=== PATIENT | female | born 2000 | race Caucasian/White ===

== ENCOUNTER 2021-09-03 09:15 | Outpatient (RCR) | payer OTHER, SELFPAY ==
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
--- NOTE | 2021-09-03 10:14 | BH.COMM_ITS ---
Communication Note - Communication with Client Communication Note: Met with patient to complete initial paperwork. No sig nificant change since pre-admission screening. Completed [place] Suicide screening. Pt reports last suicidal ideation with plan or intent occurred on 08/04/21 just prior to her attempt and hospitalization. Reports long-standing self-injurious behaviors and suicidal thoughts which in the last month have only lasted minutes. Denied active SI, plan, or intent this AM. Admits to passive thoughts of which are daily for several months. Reviewed case with Dr. Hall with plan to admit to IOP with dx of MDD, recurrent, severe, w/o psych features F33.2
--- NOTE | 2021-09-03 10:25 | BH.SGPN.GN ---
Behaviors/Verbalizations/Mental Status: [] Eye contact is good. Motor activity is appropriate. Appearance is neat. Speech is Appropriate. Mood is anxious. Affect is congruent. Thoughts are linear and logical. No evidence of psychosis. Client Response/Progress/Benefit: [] Pt did not participate in interactive group discussion however was engaged during experiential activity. Attentive during psychoeducation on the role and types of supports. Group members were able to identify types of healthy support which included; family, friends, medications, pets, professionals, and healthy hobbies. Also able to identify the difference between healthy and unhealthy support. Listed that healthy support is; non-judgemental, understanding, challenges us, can keep us in check, motivates us, and gives us space when needed. Obstacles that were identified to keep one from seeking or utilizing support included; cognitive distortions, pride, lack of awareness, fear of other's reactions. During experiential activity pt was able to relate and make connections between psychoeducation and the activity. Benefited from increased insight into the benefits of having a balanced support system. Will continue in IOP to maintain safety, prevent decompensation, and increase healthy coping skills. Narrative Note: []
--- NOTE | 2021-09-03 11:16 | BH.SGPN.GN ---
Behaviors/Verbalizations/Mental Status: []Client alert and oriented, casually dressed and groomed. Eye contact fair to good. Motor activity appropriate. Speech within normal limits. Affect constricted, mood depressed. Thoughts linear, logical, no signs of hallucinations or delusions. Client Response/Progress/Benefit: []Client was attentive and taking notes throughout session, however, continues to remain mostly passive in participation. Participated in the group activity highlighting the various barriers to effectively utilizing supports and strategies for improving support. Client provided some limited input, which is progress, during discussion on the types of support our supports can provide (emotional, tangible, affirmational, network/belonging, and instructional) and the group listed examples for all types. Client reports wanting to work on increasing emotional supports, noting this will help her feel heard and have a safe person she can vent to. Client plans to improve this support area by making efforts to open up more to her friend, Barbara, about emotional needs. Client seemed to benefit from identifying the type of support and how this support will aid in promoting overall mental wellness. Will continue IOP tx to further improve healthy coping repertoire, continue to improve mood stability and reduce self-harming urges, maintain safety, as well as prevent decompensation. Narrative Note: []
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
--- NOTE | 2021-09-04 10:15 | BH.SGPN.GN ---
Behaviors/Verbalizations/Mental Status: []Client alert and oriented, disheveled appearance. Eye contact poor-head down and eyes closing at times. Motor activity appropriate. Speech within normal limits. Affect flat, mood depressed and irritable. Thoughts linear, logical, no signs of hallucinations or delusions. Client Response/Progress/Benefit: []Client did not appear engaged during session AEB being quiet, not taking notes, and almost falling asleep at times. Group identified benefits of setting boundaries such as advocating for oneself, less anxiety and stress, and better quality of life. Group also identified barriers to setting boundaries. Client seemed to benefit from meeting with psychiatry today and gaining peer connection. Second day of IOP tx, no progress to document. Will continue IOP tx prevent decompensation and maintain safety. Narrative Note: []
[2021-09-04 10:23] VITALS: BP 118/78; PULSE 81
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
--- NOTE | 2021-09-04 12:46 | BH.DR.ITP ---
Initial Treatment Plan Patient Information Visit Information: ADMISSION DATE: EXPECTED LOS: 4-6 weeks Problems/Symptoms Problem #1:: Depression Symptom:: Sadness, hopelessness, worthlessness, guilt, low motivation, biological disruption of appetite, passive thoughts of , recent fleeting suicidal ideation
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
--- NOTE | 2021-09-05 09:06 | BH.SGPN.GN ---
Behaviors/Verbalizations/Mental Status: []Eye contact is fair. Motor activity is appropriate. Appearance is casual. Speech is Appropriate. Mood is dysthymic. Affect is congruent. Thoughts are linear and logical. No evidence of psychosis. SI reported as a 1/5 which is consistent with baseline. Denies any plan, or intent as of this date. Client Response/Progress/Benefit: []Pt responded well to session AEB pt listening attentively to peers and willingness to process with group. Pt reports feeling ?tired? this morning. Attributes this to ongoing difficulties in managing symptoms of depression, noting that she had slept the entire previous day as well. Pt acknowledged that this has not been helpful for improving her mental health and did well to identify healthier alternatives to isolating. Expressed plans to meet up with her best friend and darius gabrielle together. Pt shared this activity brings her david and will also provide a change in environment which is a positive. Shared that she has also taken steps to establish a boundary with someone she met while hospitalized, explaining that this person had become negative and a toxic influence on her thoughts. Shared that she had muted the conversation so she would no longer receive notifications as well. Appears to be engaging in treatment and able to connect more with fellow participants which is progress. Benefited from supportive environment and reflecting upon personal areas of progress. Recommended continued IOP tx to promote healthy skill application, continue to improve mood stability, and prevent decompensation. Narrative Note: []
--- NOTE | 2021-09-05 10:15 | BH.SGPN.GN ---
Behaviors/Verbalizations/Mental Status: []Client alert and oriented, casually dressed and groomed. Eye contact fair. Motor activity appropriate. Speech within normal limits. Affect flat, mood depressed. Thoughts linear, logical, no signs of hallucinations or delusions. Client Response/Progress/Benefit: []Pt provided input in small group discussion, but was quiet during larger group discussion. Attentive during psychoeducation and provided insight on definition and benefits of self-care. Group identified self-care benefits to include; improves relationships, increases motivation, helps one be more engaged with others, improves physical health, and can improve productivity. Pt connected with the barriers that keep people from practicing self-care and reports feeling guilty is a big barrier for her. Pt participated in activity aimed at identifying and challenging common self-care myths. Worked within small group to identify evidence challenging myths. Benefited from group by increasing awareness of benefits to self-care and consequences of neglecting self-care. Will continue in IOP to prevent decompensation, improve symptom management, and maintain safety. Narrative Note: []
--- NOTE | 2021-09-05 11:15 | BH.SGPN.GN ---
Behaviors/Verbalizations/Mental Status: []Client alert and oriented, casually dressed and groomed. Eye contact good. Motor activity appropriate. Speech within normal limits. Affect flat, mood apathetic. Thoughts linear, logical, no signs of hallucinations or delusions. Client Response/Progress/Benefit: []Client engaged participant AEB client taking notes and participating in the activity. Attentive throughout group discussion on the various areas of self-care and made connections during the activity. Client completed worksheet which identified current self-care practices and what self-care activities client wants to start using. Client selected financial self-care as the area of self-care client would like to improve. Client plans to do this by creating a budget. Appeared to benefit from completing the self-care evaluation and gaining insights into current self-care practices, as well as identifying areas in which she would like to improve upon. Will continue IOP tx to maintain safety, increase emotional regulation skills, and improve daily functioning. Narrative Note: []
--- NOTE | 2021-09-09 10:10 | BH.SGPN.GN ---
Behaviors/Verbalizations/Mental Status: []Client alert and oriented, casually dressed and groomed. Eye contact poor. Motor activity appropriate. Speech within normal limits. Affect flat, mood depressed. Thoughts linear, logical, no signs of hallucinations or delusions. Client Response/Progress/Benefit: []Client was a passive participant AEB providing limited feedback to discussion and passively involved with group activity. Connected with the topic of pitfalls and helped the group discuss barriers that keep them from choosing a healthier path to mental wellness such as pitfalls. Group worked together to identify examples of personal pitfalls which included: lashing out, jumping to conclusions, social media, isolation and addictive behaviors. Client shared personal pitfalls as: poor communication, avoidance, and not setting boundaries. Completed activity with group, stayed quiet but listened to others ideas. Client benefited from group as learned personal barriers from improving mental health. Client will continue IOP to increase engagement in treatment, improve emotion regulation and prevent decompensation.
--- NOTE | 2021-09-09 11:10 | BH.SGPN.GN ---
Behaviors/Verbalizations/Mental Status: []Client alert and oriented, casually dressed and groomed. Eye contact fair. Motor activity appropriate. Speech within normal limits. Affect constricted, mood anxious. Thoughts linear, logical, no signs of hallucinations or delusions. Client Response/Progress/Benefit: []Client engaged throughout AEB client actively listening, taking notes, and at times contributing to discussion. Client completed worksheet identifying personal pitfalls impacting mental health progress. Client identified the following pitfalls: lack of communication, avoidance, and lack of boundaries. Group brainstormed different coping skills to help manage pitfalls. Client selected lack of boundaries as the pitfall client would like to overcome. Client plans to work on this by ?reminding myself to live for me, not what other people what of me.? from identifying personal pitfalls and strategies to overcome these pitfalls. Will continue IOP tx to improve emotional regulation skills, reduce suicidal ideations, and increase application of healthy coping skills. Narrative Note: []
--- NOTE | 2021-09-09 15:12 | BH.MDN ---
Multi-Disciplinary Note - Note 30-min Individual Time Started:: 09:40 Date: 09/09/21 Purpose of session/treatment goals addressed:: To address current stressors, symptoms, and triggers. Another goal was to identify coping skills and supports to help client make it through the holidays. Eye Contact:: Good Motor Activity:: Appropriate Appearance:: Casual Speech:: Appropriate Mood:: Anxious Affect:: Congruent Thoughts:: Linear, Logical, No evidence of hallucinations/delusions noted Staff Interventions:: motivational interviewing, CBT techniques, rapport building, taught coping skills - DBT skills overview. Client Response:: Client responded well to session, open to meeting with therapist. Client reports the weekend went pretty well as client spent a lot of time with friends. Client stated she is currently frustrated with her sister and mother, but client reports this is normal for client. Client's biggest stressor right now is being around her extended family on [place]. Client shared they are all going to ask how I'm doing and how school is and I'm not looking forward to it. Discussed supports and coping skills client can use to cope during the holidays. Client stated her mom plans to call family members ahead of time to set a boundary and client would like to take a friend as an extra support. Also rehearsed statements client can use if someone does not respect a boundary. Also reviewed DBT emotional regulation skills (halt unhealthy behaviors, create a plan, redirect, and self-soothe). Discussed ways client has been coping with self-harm urges and chronic SI including distracting self with TV shows. Client receptive to reviewing the DBT handout for homework. Risks/Concerns:: Client reports having chronic passive SI, but client denies any active suicidal ideations, plan, or intent as of 09/09/21. Future oriented and talking about looking forward to her birthday with friends. Client reports her birthday is coming up and she plans to drink with her friends. Client has a history of alcohol misuse and this concern was discussed. Progress Toward Goals/Plan:: Client progressing towards treatment AEB her consistent attendance and engagement in individual sessions. Client's second week of IOP tx, so no significant changes in mood to document. Client continues to endorse a depressed mood, chronic passive SI and urges to self-harm, negative thinking patterns, and anxiety. Client also reports ongoing interpersonal relationship issues with her family that continue to impact her mental health. Client will continue IOP tx to prevent decompensation, improve emotional regulation skills, and improve daily functioning. Time Stopped:: 10:00
--- NOTE | 2021-09-10 09:00 | BH.SGPN.GN ---
Behaviors/Verbalizations/Mental Status: [] Eye contact is good. Motor activity is appropriate. Appearance is casual. Speech is Appropriate. Mood is depressed. Affect is flat. Thoughts are linear and logical. No evidence of psychosis. Reviewed daily check-in tracker and pt reports 2/5 for suicidal ideations and 1/5 for intent. This has been baseline since entering the program. Client Response/Progress/Benefit: [] Pt participated when prompted. Attentive. Daily symptoms tracker notes 3/5 for depression. Pt states while smiling I'm pretty excited about his upcoming week. Shared that her b-day is next week, her brother's is this week, and Xmas is this Thursday. She is stressed about interacting with family due to her recent mental health struggles and asked peers for feedback on how to handle nosy people. Group provided some suggestions and feedback to set boundaries and respond politely to those who ask questions that are too invasive. Admits that she continues to struggle with intrusive suicidal thoughts and is hopeless at times that treatment and therapy will not be effective. Nothing has worked in the past and I don't want to think like this forever. She follows this up with stating that she will try and put effort into the IOP program. Group members empathized with her feelings and provided support and encouragement which was beneficial. Will continue in IOP to maintain safety, increase health coping, and improve functioning. Narrative Note: []
--- NOTE | 2021-09-10 10:15 | BH.SGPN.GN ---
Behaviors/Verbalizations/Mental Status: []Client alert and oriented, casually dressed and groomed. Eye contact fair to good. Motor activity appropriate. Speech within normal limits. Affect constricted, mood depressed. Thoughts linear, logical, no signs of hallucinations or delusions Client Response/Progress/Benefit: [] Client was attentive throughout and taking notes; however, remained passive throughout discussion portions of session. Appeared to connect with group topic of perspective and the impacts of one?s perspective on mental health. This is evidenced by nodding at times. Client attentive as the group worked to identify impact of a negative perspective which included: not believing treatment will work, giving up, negative self-talk, and unhealthy coping. Client appeared to benefit from increasing understanding of mental health benefits of a positive perspective as she often struggles with perspective when it comes to the treatment environment. Progress limited as client continues to struggle with active participation in discussion, however does appear engaged and continues to take notes throughout as well as is opening up more to fellow participants. Will continue IOP tx to continue to promote healthy coping skills, improve mood stability, and prevent decompensation. Narrative Note: []
--- NOTE | 2021-09-10 11:15 | BH.SGPN.GN ---
Behaviors/Verbalizations/Mental Status: []Client alert and oriented, causally dressed and groomed. Eye contact good. Motor activity appropriate. Speech within normal limits. Affect constricted, mood dysthymic. Thoughts linear, logical, no signs of hallucinations or delusions Client Response/Progress/Benefit: []Pt did well to remain attentive throughout session, AEB providing input throughout discussion. Engaged as group reviewed the importance of taking a strengths-based approach in order to foster a healthier perspective and better manage mental health symptoms. Completed strengths exploration worksheet and identified personal strengths to include: humor, persistence, social awareness, open-mindedness, and empathy. Pt reported she will build her strengths by reaching out to healthy supports for validation. Benefited from identifying personal strengths and strategies for enhancing use of identified strengths. Pt continues to report hopelessness that therapy will work, but she is showing progress in increased engagement in sessions. Pt to continue IOP tx to prevent decompensation, increase distress tolerance skills, and improve mood stability. Narrative Note: []
--- NOTE | 2021-09-11 09:00 | BH.SGPN.GN ---
Behaviors/Verbalizations/Mental Status: [] Eye contact is good. Motor activity is appropriate. Appearance is casual. Speech is Appropriate. Mood is depressed. Affect is flat. Thoughts are linear and logical. No evidence of psychosis. Reviewed daily check in sheet and pt reports 2/5 for suicidal thoughts and 1/5 for intent. This has been baseline since entering IOP. Client Response/Progress/Benefit: [] Pt participated when prompted. Attentive. Emotion for today is neutral stating that she is neither depressed or happy. Daily symptom tracker notes 3/5 for depression and 2/5 for irritability. Shared that she has stayed away from the drama with her roommates from [place]. She discussed the dynamics briefly and feels that its best for her mental health not to get involved in unhealthy group texts. She is upset due to her friend possibly not being able to visit for pt's b-day next week however is managing the distress stating If that happens I have a back-up plan. Continues to look forward to upcoming holiday and is having lunch with her mother today. In the past pt has mentioned conflict with her parents and when asked stated that he and her mother often get-along well. She reports that it depends on her mother's mood and took no responsibility for her previous mood or actions that could impact the relationship. Progress noted. Benefited from group support, encouragement, and feedback. Will continue in IOP to maintain safety and prevent decompensation. Narrative Note: []
--- NOTE | 2021-09-11 10:07 | BH.SGPN.GN ---
Behaviors/Verbalizations/Mental Status: []Eye contact is fair, at times appearing to struggle to remain awake. Motor activity is appropriate. Appearance is casual. Speech is Appropriate. Mood is depressed. Affect is constricted. Thoughts are linear and logical. No evidence of psychosis. Client Response/Progress/Benefit: []Pt was a mostly passive participant in group discussion and activity AEB taking limited notes and at times falling asleep throughout discussion. Did well to listen at times during discussion on resilience and mental health benefits of resilience. However, inconsistent engagement and often falling asleep during group is a concern for pt?s ability to make consistent progress in treatment. Pt has shared concerns that mental health tx has been ineffective in the past and pt current difficulties in engagement are likely to create difficulties for current tx to be effective. Pt was willing to complete the prompt in which participants identified resiliency factors they are currently practicing. Shared she is currently practicing ?nurture a positive view of self? and ?taking care of yourself?. Will continue in IOP to continue to improve depression management and mood stability, promote healthy coping skill application, and prevent decompensation. Narrative Note: []
--- NOTE | 2021-09-11 11:15 | BH.SGPN.GN ---
Behaviors/Verbalizations/Mental Status: []Client alert and oriented, casually dressed and groomed. Eye contact good. Motor activity appropriate. Speech within normal limits. Affect flat, mood dysthymic. Thoughts linear, logical, no signs of hallucinations or delusions Client Response/Progress/Benefit: []Client responded well to session AEB contributing to discussion and completing the resilience worksheet provided. Client participated in the discussion of how each resiliency component can help increase personal resiliency and worked cooperatively with group to identify strategies to enhance each of the components discussed. Client identifying doing well with the resilience components of nurturing a positive view of self and taking care of herself. Went on to reflect wanting to improve in the personal resilience component of taking decisive action. Client stated she wants to work on this by setting deadlines for her goals. Client seemed to benefit from discussing strategies for improving personal resilience. Will continue IOP tx to improve emotional regulation skills, reduce isolation, and improve daily functioning. Narrative Note: []
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
--- NOTE | 2021-09-16 11:57 | BH.COMM_ITS ---
Communication Note - Communication with Client Communication Note: Client reported she will run out of her Cymbalta today. This therapist called the IOP nurse and the nurse will call in a refill at client's preferred pharmacy, [facility] in [place]. Therapist communicated this with client after talking with IOP nurse.
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
--- NOTE | 2021-09-16 13:59 | BH.COMM ---
Communication Note - Communication with Client Communication Note: Client's mother called into IOP this morning to share concerns about client's mental health. This therapist unable to disclose any information outside of safety plan with mother as client does not have a DAHIANA for mother. No DAHIANA singed for mother as client reports that the relationship with mother is toxic. Client also reports current argument with mother that resulted in client moving out last night (see multidisciplinary note). Therapist informed client's mother that a risk assessment was completed, a safety plan was created, client's identified support was contacted, and client's Cymbalta will be refilled as requested. Client aware of the conversation and gave verbal consent to share about medication. Therapist informed client's mother that client did not present as a imminent risk to self or others today as client denied any suicidal ideations, plan, or intent and reported ability to maintain safety.
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
--- NOTE | 2021-10-01 14:00 | BH.COMM ---
Communication Note - Communication with Client Communication Note: Pt's mother called in stating that pt was in the ER last evening due to an allergic reaction which resulted in mouth sores and a swollen face. After being evaluated pt was discharged with an antihistamine and instructed to discontinue her Cymbalta. Per mother ER was unsure what caused the allergic reaction however they suspect it was the Cymbalta. They recommended that pt follow up with psychiatry. Since d/c from [facility] pt remains on waitlist for [facility]. Pt has been on her current dose of Cymbalta since 08/13/21. She was prescribed Cymbalta while she was admitted to inpatient psych unit at [facility]. Pt entered our IOP on 09/03/21 and was discharged on 09/16/21. She did not complete IOP and elected to discharge as she wanted to move back to [place]. Declined virtual. Refer to dc note. Our psychiatrist Dr. Hall made no medication changes while in [facility] however did refill her Cymbalta. Consulted with Dr. Hall as mother was concerned with withdrawal from antidepressant. Dr. aHll recommended starting pt back on Prozac 20mg for 2 days and then increasing to 30mg until they can meet with PCP. Spoke with mother who confirmed that pt had no previous adverse reaction to Prozac and had been on it for 2 years only switching due to limited benefit. Mother agreed to make appt with PCP MARIA DEL ROSARIO to get her re-evaluated and discuss plan for taper or maintenance. If mother or patient notice any adverse reaction or changes in emotions she is to take patient to the ER.
== END 2021-09-16 13:31 | disposition home or self-care (01) ==
LOC: BHIOP 09:15
PROVIDERS: PCP Obstetrics & Gynecology Gynecology; Referring Provider Psychiatry & Neurology Psychiatry; Visit Provider Psychiatry & Neurology Psychiatry
DX: F33.2 Major depressive disorder, recurrent severe without psychotic features (principal); Z79.899 Other long term (current) drug therapy
CPT/HCPCS: S9480; 90832; 90837; 90853